=== PATIENT | female | born 1945 | race Caucasian/White ===

== ENCOUNTER 2017-10-15 10:57 | Inpatient (IN) | payer OTHER ==
[~2017-10-15] VITALS: Ht 167.6 cm; Wt 68.5 kg
--- NOTE | ~2017-10-15 | HC ---
[facility] [address] CONSULTATION Name: BLETRAN HERNDON Room #: 417-I ADM IN M.R.#: [id number] Admission: 10/15/17 Attend Phys: Ilir Lee MD Discharge: Date of : 49 Report #: [id number] THIS REPORT FOR: //name// CC: Ilir Ribeiro DATE OF SERVICE: 10/15/2017 INFECTIOUS DISEASES CONSULTATION REASON FOR CONSULTATION: Evaluate suspected postoperative infection. HISTORY OF PRESENT ILLNESS: The patient is a 72-year-old who underwent a bladder sling redo procedure on 08/01/2017 at [facility]. She had a postoperative hematoma developed that was CT scan confirmed. This was evident early postop. Since then, she has had persistent fatigue with no documented fever, chills or sweats. She has malaise. Bladder function she feels as reasonable. No further urinary incontinence. She thinks she was put on an antibiotic several months ago. Since then, she has had an episode of thrush. Presents now for further evaluation due to her suspected complication in the pelvis. She did present on 10/05/2017 to [facility] with chills and unsteadiness. No evidence of fever. She has been lethargic. She had been that way for approximately 3 weeks. Again, denied any dysuria or frequency. She has had loose stools ever since she had a cholecystectomy over a year ago. During the evaluation, she was afebrile, hemodynamically stable. Examination was fairly unremarkable. Urinalysis was unremarkable. WBC count was 3.3, hemoglobin was 16. Creatinine was 1.3. Chest x-ray was unremarkable and CT scan of the abdomen and pelvis showed a 6 x 9 x 7 cm fluid collection with a rim of enhancement posterior to the rectus muscles in the pelvis. She was discharged to follow up in the outpatient clinic. Because she has not shown any signs of improvement, she was hospitalized for further evaluation. She reports no headache, pharyngitis symptoms, cough or sputum production. No chest pain. No nausea or vomiting. Stools have been soft to loose. No blood in her stool. No vaginal discharge. No abdominal pain. No flank pain. Voiding has been without difficulty. No hematuria. Appetite has been fair. No weight loss. She has had no rashes or arthritis symptoms. No pleuritic chest pain. No palpitations or syncope. REVIEW OF SYSTEMS: A 14-point was negative other than what is described above. ALLERGIES: CODEINE. MEDICATIONS: Fluoxetine, hydroxyzine. [address] [address] CONSULTATION Name: BELTRAN HERNDON [facility] IN .R.#: [id number] Admission: 10/15/17 Attend Phys: Ilir Lee MD Discharge: Date of : 49 Report #: [id number] PAST MEDICAL AND SURGICAL HISTORY: Tonsillectomy, uterine polyps, hysterectomy with bladder sling procedure and bilateral oophorectomy, cholecystectomy in 2015, bladder sling redo on 08/01/2017, breast augmentation. SOCIAL HISTORY: She smokes cigarettes. No significant alcohol intake. FAMILY HISTORY: Parkinson's disease, leukemia and diabetes. PHYSICAL EXAMINATION: VITAL SIGNS: She is afebrile and hemodynamically stable. Vital signs as recorded in the chart. GENERAL: She is alert and cooperative. She was sitting up in bed. She was in no distress. Mental status was normal. Mood normal. HEENT: Unremarkable. Mouth unremarkable. Eyes unremarkable. NECK: Supple, with no bruit or JVD. Thyroid normal. LUNGS: Clear. HEART: Regular, without murmur, gallop or rub. LYMPH: No lymphadenopathy. SKIN: Unremarkable. ABDOMEN: Soft with positive bowel sounds. It was nontender. She did have fullness in the suprapubic region. No hepatosplenomegaly or mass. BACK: No CVA tenderness. GENITAL EXAMINATION: Unremarkable. Bimanual examination notice some fullness in the suprapubic region. No other defects. No vaginal discharge. RECTAL: Not performed. EXTREMITIES: Unremarkable. NEUROLOGIC: Nonfocal. LABORATORY STUDIES: Ultrasound is pending. Blood cultures are pending. Chemistry unremarkable. CBC is normal. IMPRESSION: A 72-year-old with bladder sling procedure over 2 months ago. Still does not feel well. She has a suprapubic hematoma with ring of enhancement noted on CAT scan beneath the rectus muscle. This would be concerning for infected hematoma. The patient is not toxic at this time. Other consideration would be incomplete emptying. So far no evidence of pulmonary process or other intra-abdominal processes noted on her CAT scan. She does have loose stools since her cholecystectomy, likely due to excess bile production. RECOMMENDATION: Until we have further studies, I will hold off on any antibiotic therapy. Her white count is normal and she is afebrile. She has an [facility] [place] [place] [address] [place] [address] CONSULTATION Name: BELTRAN HERNDON Room #: 417-I ADM IN M.R.#: [id number] Admission: 10/15/17 Attend Phys: Ilir Lee MD Discharge: Date of : 47 Report #: [id number] ultrasound scheduled for the a.m. We would also check postvoid residual. We will repeat urinalysis and urine culture. General Surgery has evaluated. <ELECTRONICALLY SIGNED> By: Darius Forde MD 10/16/17 0825 1829 16 Darius Forde MD /nt
--- NOTE | ~2017-10-15 | H ---
[facility] [place] [address] HISTORY AND PHYSICAL Name: BELTRAN HERNDON Room #: 417-I ADM IN M.R.#: [id number] Admission: 10/15/17 Attend Phys: Ilir Lee MD Discharge: Date of : 47 Report #: [id number] THIS REPORT FOR: //name// CC: Ilir Ribeiro DATE OF SERVICE: 10/15/2017 CHIEF COMPLAINT: Abdominal pain. HISTORY OF PRESENT ILLNESS: The patient is a 72-year-old female who was admitted from home for evaluation of abdominal pain. In July, she underwent a revision of a bladder sling. She seemed to recover reasonably well without much incident. However, in recent weeks, she has had just general sense of fatigue, some anorexia, a few-pound weight loss and may be some subjective symptoms of low-grade fever and chills. She was seen in the ER at [facility] on 10/04/2017. A CT at that time showed an abdominal wall hematoma, I believe, outside the rectus sheath with some rim enhancement concerning for infected hematoma or seroma following the recent surgery. She is admitted for surgical and ID evaluation. PAST MEDICAL HISTORY: None. PAST SURGICAL HISTORY: She has had hysterectomy and a bladder sling, I think she said in 2002; cholecystectomy. FAMILY HISTORY: Noncontributory. SOCIAL HISTORY: No chronic alcohol or tobacco use. ALLERGIES: CODEINE. MEDICATIONS: Fluoxetine, hydroxyzine. REVIEW OF SYSTEMS: She denies headache, chest pain, shortness of breath, dysuria, myalgias, syncope or fall. OBJECTIVE: VITAL SIGNS: Temperature 36.6, pulse 51, respirations 19, blood pressure 103/67. GENERAL: She is awake and alert, in no distress. LUNGS: Clear. HEART: Regular. ABDOMEN: Soft, normoactive bowel sounds, maybe a palpable fluid fullness in the mid lower abdomen. EXTREMITIES: No cyanosis, clubbing or edema. [facility] [address] [place] [address] HISTORY AND PHYSICAL Name: BELTRAN HERNDON Room #: [address] [place] [address] [place] [facility].#: [id number] Admission: 10/15/17 Attend Phys: Ilir Lee MD Discharge: Date of : 47 Report #: [id number] NEUROLOGIC: Cranial nerves intact. LABORATORY DATA: Unremarkable. ASSESSMENT: 1. Abdominal pain. 2. Abdominal hematoma with possible infection. PLAN: I have spoken with Dr. Darius Forde and Dr. Ribeiro regarding the case and will get her CT results and then confer from there. <ELECTRONICALLY SIGNED> By: Ilir Lee MD 10/16/17 1256 1627 [id number] Ilir Lee MD /nt
--- NOTE | ~2017-10-15 | HC ---
[facility] [place] [address] CONSULTATION Name: BELTRAN HERNDON Room #: 417-I ADM IN M.R.#: [id number] Admission: 10/15/17 Attend Phys: Ilir Lee MD Discharge: Date of : 47 Report #: [id number] THIS REPORT FOR: //name// CC: Ilir Ribeiro DATE OF SERVICE: 10/15/2017 SURGICAL CONSULTATION REASON FOR CONSULTATION: Malaise and chills last couple of weeks. Abnormal CT scan done at [facility] over 10 days ago with a 6 x 9 x 7 fluid collection with rim enhancement posterior to the rectus muscle. HISTORY OF PRESENT ILLNESS: The patient is a 72-year-old who I know. I operated on her gallbladder. The patient had a redo surgery on her bladder. Her initial one was 2007 or 2008. On 08/01/2017, she had surgery at [facility]. She says she was discharged after surgery and she was going to [facility] to get her medication and she passed out. She was I believe, transferred from [facility] to [facility] and she was there for couple of days. She was found to have hematoma. She did see the surgeon on a postop visit once. She was told that that would go away on its own. The patient says she has not felt well since 08/01/2017, but there was a period of time where she did feel better and then couple of weeks ago, she started to feel bad again. Her symptoms are being tired and did have some episode of nausea and vomiting. She also has chills, particularly at nighttime. The patient went to the Emergency Room on 10/05/2017 and had some lab. Her white count was low with elevated monocytes. Her hemoglobin was 16.6, which likely is from dehydration related. Currently, her hemoglobin is 14. Her BUN is elevated at 19. Her white count currently is 6400, again with high monocytes. CAT scan from 10/05/2017 showed a 6 x 9 x 7 fluid collection with rim enhancement posterior to the rectus muscle, felt to be residual sequelae hematoma on CT on 08/01/2017 which was right after surgery. There is a question of poor filling of the superior mesenteric vein and ultrasound with Doppler is recommended of the [facility]. PAST MEDICAL HISTORY: She had gallbladder surgery 2 years ago. She is pretty healthy. No heart disease or diabetes. ALLERGIES: SHE IS ALLERGIC TO CODEINE, BENADRYL, LATEX. PHYSICAL EXAMINATION: GENERAL: The patient is alert and oriented. She is not in acute distress. LUNGS: Clear. HEART: Regular rate and rhythm. No murmur or gallop. ABDOMEN: The patient does have quite a bit of fullness in the suprapubic area midline, even mass-like effect. I do not see any redness in the abdominal wall. [address] [address] CONSULTATION Name: BELTRAN HERNDON Room #: 417-I ADM IN M.R.#: [id number] Admission: 10/15/17 Attend Phys: Ilir Lee MD Discharge: Date of : 47 Report #: [id number] This is pretty firm, but not particularly tender. IMPRESSION: The patient who had bladder surgery on 08/01/2017. She had postop bleed and passed out outside of [facility]. The patient was taken to, I believe, [facility] and then transferred to [facility] where she just had the surgery. The patient did not feel very well after discharge and then she did start to improve. Recently within the last couple of weeks, she has been feeling bad again. She feels tired. She has chills and she has had episodes of nausea and vomiting. The patient had a CAT scan, which showed fluid collection which is fairly large, 9 x 6 x 7 cm. She is fairly tiny, I think you can feel this mass. There is wall enhancement. I would be concerned there may be an infection in this area. I think I would hold off on antibiotics. Get a look at the CT scan. I will request Radiology here to cloud the images from [facility] so I can see it. We will need to speak with Dr. Lilly, who did the surgery to see if it is okay with him to aspirate or drain the fluid collection to see if it is infected. There is a possibility that this could be a benign fluid collection. I am not sure how big it was before, but she is about 2-1/2 months from the surgery where the hematoma developed. I am not sure why the monocytes are elevated. We will defer to Dr. Darius Forde of Infectious Disease. By: [id number] Ankit Ribeiro MD /nt
[~2017-10-15 10:57] MED LIST: CLARITIN10 MG PO; CRANBERRY400 M1 PO; GAVISCON TABLE1 EACH PO; NORCO 5-325 TA1 EACH PO; OSTEO BI-FLEX1 EAC1 PO
[2017-10-15] MEDS ORDERED: PROZAC20 MG PO (11:49)
[2017-10-15 11:54] VITALS: BP 103/67
[2017-10-15 13:23] LABS: HEMATOCRIT 43.1 % (37.0-47.0); HEMOGLOBIN 14.4 gm/dL (12.0-15.0); MCH 28.9 pg (26.0-34.0); MCHC 33.4 g/dL (28.0-37.0); MCV 86.5 fL (80.0-100.0); RBC 4.98 mil/uL (4.20-5.00); RDW 14.2 % (10.5-14.5); WBC 6.4 thou/uL (4.0-11.0)
[2017-10-15 13:32] LABS: ALBUMIN 3.4 g/dL (3.4-5.0); CALCIUM 9.5 mg/dL (8.5-10.1); POTASSIUM 3.6 mmol/L (3.5-5.1); TOTAL BILIRUBIN 0.5 mg/dL (<0.1-1.0); TOTAL PROTEIN 7.6 g/dL (6.4-8.2)
[2017-10-15 14:17] LABS: ABSOLUTE NEUTROPHILS 3.8 thou/uL (1.4-8.2)
[2017-10-15 14:18] LABS: LARGE PLATELETS SEVERAL; PLATELET COUNT 324 thou/uL (150-400)
[2017-10-15 17:31] VITALS: BP 119/67
[2017-10-15 18:27] LABS: URINE BILIRUBIN NEGATIVE (Negative); URINE BLOOD NEGATIVE (Negative); URINE CLARITY CLEAR; URINE COLOR YELLOW; URINE GLUCOSE-RANDOM* NEGATIVE (Negative); URINE KETONES NEGATIVE (Negative); URINE LEUKOCYTES-REFLEX NEGATIVE (Negative); URINE NITRITE-REFLEX NEGATIVE (Negative); URINE PROTEIN (DIPSTICK) NEGATIVE (Negative); URINE UROBILINOGEN 0.2 E.U./dl (0.2-1.0)
[2017-10-15 19:12] VITALS: BP 99/63
[2017-10-16 03:45] VITALS: BP 105/59
[2017-10-16 08:46] VITALS: BP 91/40
[2017-10-16 16:15] VITALS: BP 98/56
[2017-10-16 20:22] VITALS: BP 98/46
[2017-10-17] VITALS (7 sets, daily range): BP systolic 95–182; BP diastolic 51–97
[2017-10-18 07:05] VITALS: BP 117/65
[2017-10-18] MEDS ORDERED: AUGMENTIN 875-1 EACH PO (11:43)
[2017-10-18 14:36] VITALS: BP 117/65
== END 2017-10-18 16:06 | disposition home or self-care (01) | DRG 921 ==
LOC: 4E 10:57 → SICU 10-17 20:41 → ENTRNSPT 10-18 15:42 → EDTRNSPTSTS 10-18 15:44 → SICU 10-18 16:06
PROVIDERS: Internal Medicine Geriatric Medicine; Surgery
PROC: 0H97X0Z Drainage of Abdomen Skin with Drainage Device, External Approach (ICD-10-PCS; principal; 2017-10-17)
DX: K91.871 Postprocedural hematoma of a digestive system organ or structure following other procedure (principal); F17.210 Nicotine dependence, cigarettes, uncomplicated; S30.1XXA Contusion of abdominal wall, initial encounter; Z83.3 Family history of diabetes mellitus; Y83.8 Other surgical procedures as the cause of abnormal reaction of the patient, or of later complication, without mention of misadventure at the time of the procedure; Z88.8 Allergy status to other drugs, medicaments and biological substances; Z88.6 Allergy status to analgesic agent; Z91.040 Latex allergy status; Z90.710 Acquired absence of both cervix and uterus; Z90.722 Acquired absence of ovaries, bilateral; Z90.49 Acquired absence of other specified parts of digestive tract; Z80.6 Family history of leukemia; Z82.0 Family history of epilepsy and other diseases of the nervous system; X58.XXXA Exposure to other specified factors, initial encounter; Y93.89 Activity, other specified; Y92.89 Other specified places as the place of occurrence of the external cause; Y99.8 Other external cause status
CPT/HCPCS: 10783; 15002

== ENCOUNTER → 2019-01-09 | Outpatient (CLI) | payer OTHER ==
[~2019-01-09] MED LIST changes: +AUGMENTIN 875-1 EACH PO; +PROZAC20 MG PO
[2019-01-09 15:05] LABS: CALCIUM 9.2 mg/dL (8.5-10.1); CREATININE 1.1 mg/dL (0.6-1.0); POTASSIUM 4.4 mmol/L (3.5-5.1); TOTAL BILIRUBIN 0.9 mg/dL (<0.1-1.0); TOTAL PROTEIN 7.8 g/dL (6.4-8.2)
[2019-01-09 15:30] LABS: TSH 1.566 uIU/mL (0.358-3.740)
[2019-01-12 15:11] LABS: ANTI-DNA SCREEN 1 IU/mL (0-9); ANTI-RNP <0.2 AI (0.0-0.9)
== END ==
LOC: LABMALL 14:09 → MRI 14:09
PROVIDERS: Psychiatry & Neurology Neuromuscular Medicine
DX: M50.11 Cervical disc disorder with radiculopathy, high cervical region (principal); M48.02 Spinal stenosis, cervical region; M25.78 Osteophyte, vertebrae; M48.03 Spinal stenosis, cervicothoracic region; M47.22 Other spondylosis with radiculopathy, cervical region

== ENCOUNTER → 2019-05-20 | Outpatient (CLI) | payer OTHER ==
[~2019-05-20] VITALS: Ht 167.6 cm; Wt 76.2 kg
[~2019-05-20] MED LIST changes: +ASA81BEC PO; +B12 ACTIVE1000 MCG PO; +CRANBERRY200 MG PO; +K2 PLUS D3 TAB1 EACH PO; +LIPITOR 20 MG T20 M1 PO; +MEDROLDOSEPACK PO; +OMEPRAZOLE10 MG PO; +VITAMIN D310 MC2 PO
--- NOTE | ~2019-05-20 | HPC ---
[facility] [place] [place] [address] PAIN MANAGEMENT CONSULTATION Name: BELTRAN HERNDON Room #: REG [facility].#: [id number] Admission: 05/20/19 Attend Phys: Olimpia Rangel MD Discharge: Date of : 47 Report #: [id number] THIS REPORT FOR: cc: Charles Forde MD,Charles Rangel,Olimpia Cheney MD ~ THIS REPORT FOR: //name// CC: Charles Rangel DATE OF SERVICE: 05/20/2019 CHIEF COMPLAINT: Pain in the right arm with numbness and tingling down in my hand with weakness. HISTORY: The patient is a 73-year-old female who has been referred to the pain clinic because of pain and discomfort, which she has been experiencing since 2019. The patient has noted some numbness and dull ache involving her right arm. Notes some pain and discomfort down in the arm, forearm and has numbness and tingling in her fingers. States that when she cooks, she is unable to feel the heat of the cooking utensils. She has burned her hands on a number of occasions. Over the last 3-4 months it has grown increasingly more problematic. She sometimes is awakened by pain and numbness in her right arm. Notes that there is pain in her low back area as well. This has gotten progressively worse as well. It involves her right leg. She has not had surgery. She has not had chiropractic treatment. Notes that ubte-yvq-sovpppr medications have not provided significant improvement. Also, notes some numbness down in her right foot. She has come to the pain clinic for evaluation and treatment. She describes it as rhythmic, periodic, aching, gnawing and rates it as a 4/10. It can rise to the level of 9/10. ALLERGIES: CODEINE. CURRENT MEDICATIONS: Omeprazole 10 mg, vitamin ____/vitamin K2 tablets, aspirin 81 mg, B12 1000 mcg chewable, cranberry extract 200 mg, Lipitor 20 mg, Prozac 20 mg, and Claritin 10 mg. PAST MEDICAL HISTORY: Major depressive disorder, hyperlipidemia, and hepatitis. PAST SURGICAL HISTORY: Tonsillectomy in 1960, uterine polyps in 1996, hysterectomy and bladder sling, bilateral oophorectomy in 2015, cholecystectomy in 2017, and bladder sling redo. SOCIAL HISTORY: She is retired, has not worked since 2002. [address] [place] [address] PAIN MANAGEMENT CONSULTATION Name: BELTRAN HERNDON Room #: REG [facility]#: [id number] Admission: 05/20/19 Attend Phys: Olimpia Rangel MD Discharge: Date of : 49 Report #: [id number] REVIEW OF SYSTEMS: Generally good health, wears glasses, runny nose, chronic sinusitis, chronic frequent coughs, postnasal drip, numbness and tingling sensation in upper extremity. LABORATORY DATA: 1. MRI of the cervical spine dated 01/09/2019. At C3-C4, there is minimal posterior disk bulging. There is no central spinal canal stenosis or left neural foraminal stenosis. Mild right neural foraminal stenosis due to uncovertebral and facet arthrosis. 2. At C4-C5, there is a small broad-based posterior disk osteophyte complex, which mildly narrows the thecal sac. There is moderate right and mild left neural foraminal stenosis due to uncovertebral facet arthrosis. 3. At C5-C6, there is a broad-based posterior disk osteophyte complex, which effaces and indents the thecal sac. There is mild thecal sac stenosis. There is muzv-vo-gjrcgtvl right and zbscmrez-to-gdthiy left neural foraminal stenosis due to uncovertebral and facet arthrosis. 4. At C6-C7, there is a broad-based posterior disk osteophyte complex. There is some thickening of the ligamentum flavum. There is at least moderate thecal sac stenosis and narrowing of the thecal sac to 7.5 mm. There is omxegpzd-fy-xfifdq right and moderate left neural foraminal stenosis due to uncovertebral facet arthrosis. 5. At C7-T1, there is a small broad-based posterior disk bulge. There is no significant central canal stenosis. There is mild bilateral neural foraminal stenosis due to uncovertebral and facet arthrosis. PAIN CLINIC ASSESSMENT AND PQRS: 1. The patient has osteoarthritis of the spine. She is not being treated for rheumatoid arthritis. 2. Height 5 feet 6 inches, weight 168 pounds, BMI is 27.4. 3. Vital Signs: Blood pressure 124/69, pulse 61, respiratory rate 14, room air saturation is 100%. 4. Pain intensity 10. 5. Fall history: The patient has not fallen in the last 3 months. 6. Blood thinner. The patient is not on a blood thinning medication. 7. Hypertension. The patient is not being treated for hypertension. 8. Opioids greater than 6 weeks. The patient is not on opioid regimen. 9. Risk assessment tool, low for opioid use. 10. Functional assessment tool, . 11. Recreational drug use: The patient denies. 12. Tobacco: The patient has smoked for 30 years, 1-1/2 pack of cigarettes per day at this juncture. 13. Alcohol. The patient denies daily use of alcohol, does drink about 3 beverages weekly. PHYSICAL EXAMINATION: GENERAL: The patient is a well-developed, well-nourished white female. [facility] [address] [place] [address] PAIN MANAGEMENT CONSULTATION Name: BELTRAN HERNDON Room #: REG [facility].#: [id number] Admission: 05/20/19 Attend Phys: Olimpia Rangel MD Discharge: Date of : 47 Report #: [id number] her stated age. She is alert and oriented x 3. Her affect is appropriate. Speech is fluent. HEENT: Normocephalic, atraumatic. Extraocular eye muscles intact. Sclerae nonicteric. Mucous membranes are moist. NECK: Without adenopathy or JVD. LUNGS: Clear to auscultation. HEART: Regular rate. ABDOMEN: Nontender. MUSCULOSKELETAL: The patient has some pain and discomfort on the right arm. Notes this pain radiates down into her right arm with numbness and soreness. She is experiencing numbness in the right forearm with numbness and tingling and loss of cold and hot sensation in her fingers with numbness and tingling. The patient has some small amount of pain on the left side. Muscle strength is judged to be 5-/5 for the major muscle groups in the upper extremity. Deep tendon reflexes are +2 for the left and right biceps. The patient is able to lean forward to about 90 degrees with some soreness in the back area. She is able to stand on her toes, will lean back on her heels. Anterior and posterior spring tests were negative. The patient does complain of some low back pain and discomfort. Complains of pain involving with numbness and tingling down into her right foot. Paco sign is negative. IMPRESSION: 1. Cervical radiculopathy involving the right side with sensory changes of numbness and tingling involving the hands and loss of hot and cold sensation in her hand. 2. Low back pain with pain radiating down into her right foot with numbness and tingling. 3. Hyperlipidemia. 4. Depression. 5. Sinusitis. RECOMMENDATIONS: We discussed treatment options with the patient. Risks and benefits of an epidural injection were discussed. A model was used to evaluate her MRI. We went over the entire MRI on the screen with the patient as well as with a model to show her the areas of pathology and the most likely cause of pain and discomfort. At this juncture, we will try a conservative approach ____. The patient will take a Medrol Dosepak. She will return to the Pain Clinic and if at that time, her pain continues to be problematic, she will then undergo an epidural steroid injection in the cervical area to help ameliorate the pain and discomfort she is experiencing. [address] [address] PAIN MANAGEMENT CONSULTATION Name: BELTRAN HERNDON Room #: MYAH MERRITTPalomo Muhammad#: [id number] Admission: 05/20/19 Attend Phys: Olimpia Rangel MD Discharge: Date of : 47 Report #: [id number] We would like to thank you for letting us participate in her care. We hope she continues to improve. By: [id number] Olimpia Rangel MD /nt
[2019-05-20 13:14] VITALS: BP 124/69
--- NOTE | 2019-05-20 14:07 | NUR ---
Pain Clinic Assessment: 1. History of Osteoarthritis: SPINAL History of Rheumatoid Arthritis: Not Applicable 2. Height: 5 ft. 6 in. 167.6 cm. Weight: 168.0 lb. oz. 76.204 kg. Patient's BMI: 27.1 3. Vital Signs: BP: 124/69 Pulse: 61 Resp: 14 Temp: 02 Sat: 100 ECG Mon: 4. Pain Intensity: 4 5. Fall Risk: Dizziness: N Needs help standing or walking: N Fallen in the last 3 months: N Fall risk comments: 6. Patient on Blood Thinner: None 7. History of Hypertension: N 8. Opioid Therapy greater than 6 weeks: N Opiate Contract Signed: 9. Risk Assessment Tool Provided: 10. Functional Assessment Tool: 11. Recreational Drug Use: Never Drug Type: Tobacco Use: Current Every Day Smoker Tobacco Type: Cigarettes Amount or Packs/day: 1.5 How Many Years: 30 Alcohol Use: Yes Frequency: Weekly Quant: 3
== END ==
LOC: PAIN 06:44
DX: M54.12 Radiculopathy, cervical region (principal); R20.0 Anesthesia of skin; R53.1 Weakness; E78.5 Hyperlipidemia, unspecified; F32.9 Major depressive disorder, single episode, unspecified; Z79.891 Long term (current) use of opiate analgesic; Z79.899 Other long term (current) drug therapy; Z88.5 Allergy status to narcotic agent

== ENCOUNTER → 2019-05-27 | Outpatient (CLI) | payer OTHER ==
[~2019-05-27] VITALS: Ht 167.6 cm; Wt 76.7 kg
[2019-05-27 12:36] VITALS: BP 126/71
--- NOTE | 2019-05-27 12:46 | NUR ---
Pain Clinic Assessment: 1. History of Osteoarthritis: SPINAL History of Rheumatoid Arthritis: DENIES 2. Height: 5 ft. 6 in. 167.6 cm. Weight: 169.0 lb. oz. 76.658 kg. Patient's BMI: 27.3 3. Vital Signs: BP: 126/71 Pulse: 60 Resp: 16 Temp: 02 Sat: 100 ECG Mon: 4. Pain Intensity: 4 5. Fall Risk: Dizziness: N Needs help standing or walking: N Fallen in the last 3 months: N Fall risk comments: 6. Patient on Blood Thinner: None 7. History of Hypertension: N 8. Opioid Therapy greater than 6 weeks: N Opiate Contract Signed: 9. Risk Assessment Tool Provided: 10. Functional Assessment Tool: 11. Recreational Drug Use: Never Drug Type: Tobacco Use: Current Every Day Smoker Tobacco Type: Cigarettes Amount or Packs/day: 1 How Many Years: 35 Alcohol Use: Yes Frequency: Daily Quant:
== END | disposition home or self-care (01) ==
LOC: PAIN 06:48
DX: M54.12 Radiculopathy, cervical region (principal); G89.29 Other chronic pain; F17.210 Nicotine dependence, cigarettes, uncomplicated; Z98.890 Other specified postprocedural states; Z88.8 Allergy status to other drugs, medicaments and biological substances; Z79.899 Other long term (current) drug therapy